=== PATIENT | male | born 1965 | race Caucasian/White ===

== ENCOUNTER 2020-07-06 14:44 | Emergency (ER) | payer OTHER ==
[2020-07-06] MEDS ORDERED: HYDROCODONE/APAP 10/325 TAB ONE (15:20)
--- NOTE | 2020-07-06 15:27 | RAD REPORT ---
EXAM DESCRIPTION: RAD - Ankle Right 3 View - 07/06/2020 3:16 pm CLINICAL HISTORY: Pain;Swelling COMPARISON: No comparisons FINDINGS: Minimal avulsion fracture from the distal tip of the fibula suspected. Moderate surroundin g soft tissue swelling. Small calcaneal spurs.
--- NOTE | 2020-07-06 16:17 | EDPHYS ---
Physician Documentation [facility] Name: Ignacio Haddad Age: 55 yrs Sex: Male : 1965 Arrival Date: 07/06/2020 Time: 14:48 Bed 17 Private MD: ED Physician Vladislav De Los Santos HPI: 07/06 15:10 This 55 yrs old Male presents to ER via Ambulatory with complaints of Fall pm1 Injury, Ankle Injury. 15:10 Details of fall: The patient fell and struck dirt. Onset: The symptoms/episode pm1 began/occurred yesterday. Associated injuries: The patient sustained right ankle. Severity of symptoms: in the emergency department the symptoms are actually worse. The patient has not experienced similar symptoms in the past. Patient was climbing out of a 5 foot deep trench with a ladder and he slipped on the last rung. landed on the bottom of the trench standing but inverted his right foot. Patient was able to walk after the injury and continue working but this AM when he woke up his ankle was more swollen and painful. Historical: - Allergies: 15:00 No Known Allergies; sv - Immunization history:: Adult Immunizations up to date. - Social history:: Smoking status: . - Immunization history: Last tetanus immunization: - up to date. ROS: 15:10 Constitutional: Negative for fever, chills, and weight loss, Neck: Negative for injury, pm1 pain, and swelling, Cardiovascular: Negative for chest pain, palpitations, and edema, Respiratory: Negative for shortness of breath, cough, wheezing, and pleuritic chest pain, Back: Negative for injury and pain. 15:10 Skin: Negative for injury, rash, and discoloration. 15:10 Neuro: Negative for headache, weakness, numbness, tingling, and seizure. 15:10 MS/extremity: Positive for pain, swelling, tenderness, of the right ankle, Negative for decreased range of motion, deformity. Exam: 15:10 Constitutional: This is a well developed, well nourished patient who is awake, alert, pm1 and in no acute distress. Head/Face: Normocephalic, atraumatic. Neck: Trachea midline, no thyromegaly or masses palpated, and no cervical lymphadenopathy. Supple, full range of motion without nuchal rigidity, or vertebral point tenderness. No Meningismus. 15:10 Cardiovascular: Exam negative for acute changes, Rate: normal, Rhythm: regular, Pulses: no pulse deficits are appreciated. 15:10 Respiratory: Exam negative for acute changes, respiratory distress, shortness of breath. 15:10 Musculoskeletal/extremity: Extremities: grossly normal except: noted in the right ankle: swelling, tenderness, There is no evidence of decreased ROM, deformity, Circulation is intact in all extremities. Sensation intact. 15:10 Neuro: Exam negative for acute changes, Orientation: is normal, Mentation: is normal, Motor: is normal, moves all fours. Vital Signs: 14:59 BP 205 / 101; Pulse 83; Resp 16; Temp 97.7; Pulse Ox 99% ; Weight 136.98 kg; Height 5 sv ft. 9 in. (175.26 cm); 15:00 BP 205 / 101; Pulse 79; Resp 18; Temp 98.0; Pulse Ox 98% ; Pain 7/10; ll1 15:11 BP 166 / 96; ll1 17:10 BP 167 / 88; Pulse 71; Resp 18; Pulse Ox 98% ; Pain 0/10; sv 14:59 Body Mass Index 44.60 (136.98 kg, 175.26 cm) sv [place] Coma Score: 15:02 Eye Response: spontaneous(4). Verbal Response: oriented(5). Motor Response: obeys ll1 commands(6). Total: 15. Trauma Score (Adult): 15:02 Eye Response: spontaneous(1); Verbal Response: oriented(1); Motor Response: obeys ll1 commands(2); Systolic BP: > 89 mm Hg(4); Respiratory Rate: 10 to 29 per min(4); [place] Score: 15; Trauma Score: 12 Procedures: 16:43 Splinting: Splint applied to right ankle using Orthoglass splint, applied by tech. pm1 Examined by me, post splint application: neurovascular intact, 2+ distal pulses palpable, brisk capillary refill noted, Patient tolerated well, Patient is happy with the support that it is providing. MDM: 14:57 Patient medically screened. pm1 16:13 Data reviewed: vital signs. Data interpreted: Pulse oximetry: on room air is 98 %. pm1 Interpretation: normal. Counseling: I had a detailed discussion with the patient and/or guardian regarding: the historical points, exam findings, and any diagnostic results supporting the discharge/admit diagnosis, radiology results, the need for outpatient follow up, for definitive care, a orthopedic surgeon, to return to the emergency department if symptoms worsen or persist or if there are any questions or concerns that arise at home. 07/06 14:57 Order name: Ankle Right 3 View XRAY; Complete Time: 15:32 pm1 07/06 14:57 Order name: Ice pack; Complete Time: 14:59 pm1 07/06 15:58 Order name: Crutches; Complete Time: 16:32 pm1 07/06 15:58 Order name: Splint - Ankle: Orthoglass: Stirrup; Complete Time: 16:32 pm1 Administered Medications: 15:10 Drug: [place] 10 mg-325 mg 1 tabs {Note: rass 0.} Route: PO; ll1 17:21 Follow up: Response: No adverse reaction; Pain is decreased; RASS: Alert and Calm (0) sv Disposition: 17:26 Co-signature as Attending Physician, Vladislav De Los Santos MD. rn Disposition: 07/06/20 16:16 Discharged to Home. Impression: Closed right minimal distal fibula avulsion fracture. - Condition is Stable. - Discharge Instructions: Ankle Fracture, Cast or Splint Care, Adult, Crutch Use. - Prescriptions for Tylenol- Codeine #3 300-30 mg Oral Tablet - take 2 tablets by ORAL route every 6 hours As needed; 20 tablet. - Medication Reconciliation Form, Thank You Letter, Antibiotic Education, Prescription Opioid Use form. - Follow up: Emergency Department; When: As needed; Reason: Worsening of condition. Follow up: Private Physician; When: 2 - 3 days; Reason: Recheck today's complaints, Continuance of care, Re-evaluation by your physician. - Problem is new. - Symptoms have improved. Signatures: Dispatcher [employer] Briana Gordon RN Vladislav Seals MD MD rn Marinas, Patrick, NP ART CRITIC pm1 Radha Stevens RN RN ll1 Corrections: (The following items were deleted from the chart) 17:13 16:16 07/06/2020 16:16 Discharged to Home. Impression: Closed right minimal distal sv fibula avulsion fracture. Condition is Stable. Forms are Medication Reconciliation Form, Thank You Letter, Antibiotic Education, Prescription Opioid Use. Follow up: Emergency Department; When: As needed; Reason: Worsening of condition. Follow up: Private Physician; When: 2 - 3 days; Reason: Recheck today's complaints, Continuance of care, Re-evaluation by your physician. Problem is new. Symptoms have improved. pm1
--- NOTE | 2020-07-06 16:17 | ER ---
Nurse's Notes [facility] Name: Ignacio Haddad Age: 55 yrs Sex: Male : 1965 Arrival Date: 07/06/2020 Time: 14:48 Bed 17 Private MD: Diagnosis: Closed right minimal distal fibula avulsion fracture Presentation: 07/06 14:58 Chief complaint: Patient states: was digging a trench outside, was coming out of the sv ditch and slipped. Landed on a dirt chunk and rolled his right ankle inward. c/o pain and swelling. Care prior to arrival: None. Mechanism of Injury: Fall. Trauma event details: Injury occurred: at home. Injury occurred: July 05, 2000. 14:58 Method Of Arrival: Ambulatory sv 14:58 Acuity: DEWEY 3 sv 14:58 Onset of symptoms was July 05, 2020. sv 14:59 Coronavirus screen: Client denies travel out of the [place] in the last 14 days. At this sv time, the client does not indicate any symptoms associated with coronavirus-19. Ebola Screen: No symptoms or risks identified at this time. 15:00 Ebola Screen: Patient denies travel to an Ebola-affected area in the 21 days before ll1 illness onset. Initial Sepsis Screen: Does the patient meet any 2 criteria? No. Patient's initial sepsis screen is negative. Does the patient have a suspected source of infection? Yes: Bone or joint infection. Risk Assessment: Do you want to hurt yourself or someone else? Patient reports no desire to harm self or others. Onset of symptoms was July 06, 2020. Triage Assessment: 15:02 General: Appears uncomfortable, Behavior is calm, cooperative, appropriate for age. ll1 Pain:. Neuro: No deficits noted. Cardiovascular: No deficits noted. Respiratory: No deficits noted. Musculoskeletal: Circulation, motion, and sensation intact. Capillary refill < 3 seconds, Swelling present in R ankle. Injury Description: Bruise tripped waking up ditch. Trauma Activation: Not Applicable Physician: ED Physician; Name: ; Notified At: ; Arrived At: Physician: General Surgeon; Name: ; Notified At: ; Arrived At: Physician: Radiology; Name: ; Notified At: ; Arrived At: Physician: Respiratory; Name: ; Notified At: ; Arrived At: Physician: Lab; Name: ; Notified At: ; Arrived At: Historical: - Allergies: 15:00 No Known Allergies; sv - Immunization history:: Adult Immunizations up to date. - Social history:: Smoking status: . - Immunization history: Last tetanus immunization: - up to date. Screenin:01 Abuse screen: Denies threats or abuse. Nutritional screening: No deficits noted. ll1 Tuberculosis screening: No symptoms or risk factors identified. Fall Risk Ambulatory Aid- Crutches/Cane/Walker (15 pts). Gait- Impaired (20 pts.). Total Katz Fall Scale indicates Low Risk Score (25-44 pts). Fall prevention measures have been instituted. Side Rails Up X 2 Frequent Obs/Assesments occuring As available Patient and Family Educated on Fall Prevention Program and strategies. Primary Survey: 15:01 NO uncontrolled hemorrhage observed. A: The patient is alert. Airway: patent. ll1 Breathing/Chest: Respiratory pattern: regular, Respiratory effort: spontaneous, unlabored, Breath sounds: clear, Chest inspection: symmetrical rise and fall of the chest. Circulation: Heart tones present. Pulses: palpable right radial artery, right dorsalis pedis artery, left radial artery and left dorsalis pedis artery. Skin color: pink. Disability Alert. Exposure/Environment: A warming method has been applied: A warm blanket has been provided to the patient. 15:13 Reassessment Breathing/Chest Respiratory pattern Regular Respiratory effort Spontaneous ll1 Unlabored Breath sounds Clear Chest inspection Symmetrical. Assessment: 15:11 General: Appears uncomfortable, Behavior is calm, cooperative, appropriate for age. ll1 Pain: Complains of pain in R ankle Quality of pain is described as aching, Pain began 1 day ago. Aggravated by increased activity. Neuro: No deficits noted. Cardiovascular: No deficits noted. Respiratory: No deficits noted. Derm: 3 small abrasion down right bates, no active bleeding. Musculoskeletal: Circulation, motion, and sensation intact. Capillary refill < 3 seconds, Swelling present in R lateral ankle Tenderness present in R ankle Reports pain in R ankle. Injury Description: Bruise slip and fall. 16:10 Reassessment: Patient and/or family updated on plan of care and expected duration. Pain sv level reassessed. Patient is alert, oriented x 3, equal unlabored respirations, skin warm/dry/pink. Patient states feeling better. 17:10 Reassessment: Patient and/or family updated on plan of care and expected duration. Pain sv level reassessed. Patient is alert, oriented x 3, equal unlabored respirations, skin warm/dry/pink. Vital Signs: 14:59 BP 205 / 101; Pulse 83; Resp 16; Temp 97.7; Pulse Ox 99% ; Weight 136.98 kg; Height 5 sv ft. 9 in. (175.26 cm); 15:00 BP 205 / 101; Pulse 79; Resp 18; Temp 98.0; Pulse Ox 98% ; Pain 7/10; ll1 15:11 BP 166 / 96; ll1 17:10 BP 167 / 88; Pulse 71; Resp 18; Pulse Ox 98% ; Pain 0/10; sv 14:59 Body Mass Index 44.60 (136.98 kg, 175.26 cm) sv [place] Coma Score: 15:02 Eye Response: spontaneous(4). Verbal Response: oriented(5). Motor Response: obeys ll1 commands(6). Total: 15. Trauma Score (Adult): 15:02 Eye Response: spontaneous(1); Verbal Response: oriented(1); Motor Response: obeys ll1 commands(2); Systolic BP: > 89 mm Hg(4); Respiratory Rate: 10 to 29 per min(4); [place] Score: 15; Trauma Score: 12 ED Course: 14:48 Patient arrived in ED. mr 14:49 Saran Lowe, FERMIN is PHCP. pm1 14:49 Vladislav De Los Santos MD is Attending Physician. pm1 14:54 Radha Stevens RN is Primary Nurse. ll1 14:59 Triage completed. sv 15:00 Nurse Practitioner and/or Physician Pig Farm Manager to see patient. sv 15:00 Arm band placed on. sv 15:00 X-ray(s) taken. jp3 15:02 Patient maintains SpO2 saturation greater than 95% on room air. ll1 15:03 Patient has correct armband on for positive identification. Bed in low position. Call ll1 light in reach. Side rails up X 1. Pulse ox on. NIBP on. 15:03 Ice pack to injury. jp3 15:04 Thermoregulation: warm blanket given to patient. ll1 15:17 Ankle Right 3 View XRAY In Process Unspecified. EDMS 16:31 Crutch training done. Donnie wrap to right ankle Orthoglass splint: stirrup splint applied jp3 on right leg. 17:13 No provider procedures requiring assistance completed. Patient did not have IV access sv during this emergency room visit. Administered Medications: 15:10 Drug: [place] 10 mg-325 mg 1 tabs {Note: rass 0.} Route: PO; ll1 17:21 Follow up: Response: No adverse reaction; Pain is decreased; RASS: Alert and Calm (0) sv Intake: 17:23 PO: 50ml; Total: 50ml. sv Outcome: 16:16 Discharge ordered by MD. pm1 17:13 Patient left the ED. sv 17:13 Discharged to home via wheelchair. sv 17:13 Condition: stable 17:22 Discharge instructions given to patient, Instructed on discharge instructions, follow sv up and referral plans. medication usage, crutch walking, Demonstrated understanding of instructions, follow-up care, medications, crutch walking, splint care, Prescriptions given X 1. 17:22 Patient's length of stay in the Emergency Department was greater than 2 hours. Signatures: Dispatcher [employer] EDMS Briana Valverde RN RN sv Indy VeeSaran, BUILD TECHNICIAN BUILD TECHNICIAN pm1 Eb Nguyen jp3 Radha Stevens RN RN ll1 Corrections: (The following items were deleted from the chart) 15:00 14:58 Acuity: DEWEY 4 sv sv 17:24 17:22 Discharged to home via wheelchair, sv sv 17:24 17:22 Condition: stable sv sv
[2020-07-06 21:29] VITALS: TEMP 98; O2SAT 98
[2020-07-06 21:36] VITALS: BP 166/96
== END 2020-07-06 17:13 | disposition home or self-care (01) ==
LOC: ER 14:44
PROC: 2W3QX1Z Immobilization of Right Lower Leg using Splint (ICD-10-PCS; principal; 2020-07-06)
DX: S82.831A Other fracture of upper and lower end of right fibula, initial encounter for closed fracture (principal); W11.XXXA Fall on and from ladder, initial encounter; Y93.89 Activity, other specified; Y92.89 Other specified places as the place of occurrence of the external cause
CPT/HCPCS: 99284

== ENCOUNTER 2021-02-16 11:10 | Emergency (ER) | payer BC, OTHER ==
--- OUTSIDE RECORDS SUMMARY | 2021-02-16 12:15 | XMS REPORT | Continuity of Care Document ---
:1965 Author Organization [facility] t Address [address] [place] [address] [address] [place] [address] Care Team Providers Name Role Phone Halina Hutson DO Primary Care Physician Lamin SANCHEZ S. Attending Clinician Payers Payer Name Policy Type Policy Effective Date Expiration Date [facility] ce Number AETNAAETNA PPO [id number] [place] OPEN 00:00:00 [place] [id number] PPO Problems This patient has no known problems. Allergies, Adverse Reactions, Alerts Allergy Allergy Status Severity Reaction(s) Onset Inactive Treating Comm ents Source Name Type Date Date Clinician Statins- Propensi Active Anaphylaxis 2019- [place] [facility] to 2-10 [facility] Reductas adverse 00:00: st e reaction 00 Inhibito s to rs drug Family History Family Member Diagnosis Comments Start Date Stop Date Source Paternal grandfather Heart attack [place] [facility] Natural father Diabetes [place] [facility] Maternal grandfather Blood Clots [place] [facility] Natural mother Cancer [place] [facility] Natural mother Diabetes [place] [facility] Social History Social Habit Start Date Stop Date Quantity Comments Source Tobacco use and 2020-07-24 2020-07-24 Never used [facility] ethodist exposure 00:00:00 00:00:00 Alcohol intake 2020-07-24 2020-07-24 Current drinker [place] [facility] 00:00:00 00:00:00 of alcohol (finding) Tobacco Comment 2020-07-24 2020-07-24 allergic to [place] [facility] 00:00:00 00:00:00 nicotine Sex Ass[birth year] At [birth year] M [place] Cj ethodist 00:00:00 00:00:00 Smoking Status Start Date Stop Date Source Never smoker [place] t Medications This patient has no known medications. Vital Signs Vital Name Observation Time Observation Value Comments Source Body height 2020-07-24 13:26:00 176.5 cm René Hansen Body weight 2020-07-24 13:26:00 144.244 kg René Hansen BMI 2020-07-24 13:26:00 46.29 kg/m2 René Hansen Procedures Procedure Date / Time Performed Performing Clinician Sourc e XR ANKLE 3+ VW RIGHT 2020-07-24 13:26:35 Dewey Kimble [facility] XR TIBIA FIBULA 2 VW 2020-07-24 13:26:35 Dewey Kimble [facility] RIGHT Plan of Care Planned Activity Planned Date Details Comments Source Future Scheduled 2021-03-15 INFLUENZA VACCINE [place] [facility] 00:00:00 [code = INFLUENZA VACCINE] Future Scheduled 2017 COLONOSCOPY SCREENING [place] [facility] 00:00:00 [code = COLONOSCOPY SCREENING] Future Scheduled 2017 SHINGLES VACCINES (#1) [place] [facility] 00:00:00 [code = SHINGLES VACCINES (#1)] Future Scheduled 1985 Hepatitis C screening [place] [facility] 00:00:00 (procedure) [code = 719499020] Future Scheduled 1979 COVID-19 VACCINE (1) [place] [facility] Test 00:00:00 [code = COVID-19 VACCINE (1)] Future Scheduled 1977 DIABETES: RETINAL EYE [place] [facility] 00:00:00 EXAM [code = DIABETES: RETINAL EYE EXAM] Future Scheduled 1977 DIABETIC FOOT EXAM [place] [facility] 00:00:00 [code = DIABETIC FOOT EXAM] Future Scheduled 1977 URINE MICROALBUMIN [place] [facility] Test 00:00:00 [code = URINE MICROALBUMIN] Encounters Start End Encounter Admission Attending Care Care Encounter Source Date/Time Date/Time Type Type Clinicians Facility Department ID 2020-07-24 2020-07-24 Outpatient [facility] [id number] [place] 00:00:00 00:00:00 [place] [address] 2020-07-24 2020-07-24 Outpatient [facility]ITO [facility] [id number] [place] 00:00:00 00:00:00 [place] [address] Results This patient has no known results.
--- NOTE | 2021-02-16 15:01 | RAD REPORT ---
EXAM DESCRIPTION: CT - Spine Lumbar Wo Con - 02/16/2021 2:47 pm CLINICAL HISTORY: Radiculopathy. LOWER BACK PAIN COMPARISON: No comparisons TECHNIQUE: Axial noncontrast CT imaging of the lumbar spine was performed with coronal and sagittal re-formatted images. All CT scans are performed using dose optimization technique as appropriate and may include automated exposure control or mA/KV adjustment according to patient size. FINDINGS: No acute lumbar spine fracture seen. No aggressive marrow pattern or malalignment. Paraspinal tissues are normal in thickness. No paraspinal abscess or hematoma seen. Bilateral spondylolysis is present at L5-S1 with 5 mm anterolisthesis a moderate posterior disc bulge . Vnko-ih-amuluvay central canal narrowing is likely present. IMPRESSION: No acute lumbar spine abnormality. Bilateral chronic spondylolysis with mild anterolisthesis moderate posterior disc bulge at L5-S1.
[2021-02-16 15:29] LABS: Urine Blood Trace-intact (Negative); Urine Glucose 3+ (Negative); Urine Protein 3+ (Negative); Urine Specific Gravity 1.025 (1.005-1.030); Urine pH 6.5 (5.0-7.0)
[2021-02-16 15:34] LABS: Absolute Lymphocytes (CBC) 2.1 K/uL (0.7-4.9); Basophils % 1.1 % (0-1.3); Hematocrit 44.2 % (39.6-49.0); Lymphocytes % 24.9 % (15.3-44.8); MPV 7.2 fL (7.6-11.3); RBC Red Blood Cell Count 5.21 M/uL (4.33-5.43)
[2021-02-16 15:41] LABS: Protime INR 1.01
[2021-02-16 15:55] LABS: ALT/SGPT 20 U/L (12-78); AST/SGOT 13 U/L (15-37); Albumin 3.5 g/dL (3.4-5.0); Alkaline Phosphatase 52 U/L (45-117); BUN Blood Urea Nitrogen 12 mg/dL (7-18); Bicarbonate 30 mmol/L (21-32); Bilirubin Direct 0.1 mg/dL (0-0.2); Bilirubin Total 0.5 mg/dL (0.2-1.0); Glucose Level 115 mg/dL (74-106); Lipase 81 U/L (73-393); Magnesium 2.3 mg/dL (1.8-2.4); NT PRO-BNP 94 pg/mL (<125); Potassium 3.7 mmol/L (3.5-5.1); Protein, Total 7.5 g/dL (6.4-8.2); Sodium Level 141 mmol/L (136-145); Troponin (Emerg Dept Use Only) < 0.02 ng/mL (0.0-0.045)
--- NOTE | 2021-02-16 15:58 | RAD REPORT ---
EXAM DESCRIPTION: RAD - Chest Single View - 02/16/2021 3:23 pm CLINICAL HISTORY: COUGH Chest pain. COMPARISON: <Comparisons> FINDINGS: Portable technique limits examination quality. The lungs are mildly emphysematous but grossly clear. The heart is normal in size. No displaced fract ures. IMPRESSION: No acute intrathoracic process suspected.
[2021-02-16] MEDS ORDERED: NA CHLORIDE 0.9% 1,000 ML ONE (16:03)
--- NOTE | 2021-02-16 16:25 | EDPHYS ---
Physician Documentation [facility] Name: Ignacio Haddad Age: 55 yrs Sex: Male : 1965 Arrival Date: 02/16/2021 Time: 11:12 Bed 24 Private MD: ED Physician Arron Rich HPI: 02/16 16:19 This 55 yrs old Male presents to ER via Ambulatory with complaints of Back jarvis Pain. 16:19 The patient presents with pain that is acute, and decreased range of motion. The jarvis symptoms are located in the low back, lumbar area and right low back. Onset: The symptoms/episode began/occurred 2 week(s) ago. The pain radiates to the lumbar area and right low back. Associated signs and symptoms: Pertinent positives: none. The problem was sustained when lifting boxes, heavy object. Modifying factors: The patient symptoms are alleviated by remaining still, rest, the patient symptoms are aggravated by lifting, movement, standing, walking. Severity of symptoms: At their worst the symptoms were mild, moderate, in the emergency department the symptoms are actually worse, mildly. The patient has experienced similar episodes in the past, multiple times. Historical: - Allergies: 11:54 Nvixmca-Umr-Qwq Reductase Inhibitors; jl7 - PMHx: 11:54 Diabetes mellitus; jl7 - Immunization history:: Client reports having NOT received the Covid vaccine. - Social history:: Smoking status: Patient denies any tobacco usage or history of. - Family history:: not pertinent. ROS: 16:19 Constitutional: Negative for fever, chills, and weight loss, Eyes: Negative for injury, jarvis pain, redness, and discharge, ENT: Negative for injury, pain, and discharge, Neck: Negative for injury, pain, and swelling, Cardiovascular: Negative for chest pain, palpitations, and edema, Respiratory: Negative for shortness of breath, cough, wheezing, and pleuritic chest pain, Abdomen/GI: Negative for abdominal pain, nausea, vomiting, diarrhea, and constipation, : Negative for injury, bleeding, discharge, and swelling, MS/Extremity: Negative for injury and deformity, Skin: Negative for injury, rash, and discoloration, Neuro: Negative for headache, weakness, numbness, tingling, and seizure, Psych: Negative for depression, anxiety, suicide ideation, homicidal ideation, and hallucinations, Allergy/Immunology: Negative for hives, rash, and allergies, Endocrine: Negative for neck swelling, polydipsia, polyuria, polyphagia, and marked weight changes, Hematologic/Lymphatic: Negative for swollen nodes, abnormal bleeding, and unusual bruising. 16:19 Back: Positive for decreased range of motion, pain at rest, pain with movement, radiated pain, of the lumbar area and right low back. Exam: 16:19 Constitutional: This is a well developed, well nourished patient who is awake, alert, jarvis and in no acute distress. Head/Face: Normocephalic, atraumatic. Eyes: Pupils equal round and reactive to light, extra-ocular motions intact. Lids and lashes normal. Conjunctiva and sclera are non-icteric and not injected. Cornea within normal limits. Periorbital areas with no swelling, redness, or edema. ENT: Nares patent. No nasal discharge, no septal abnormalities noted. Tympanic membranes are normal and external auditory canals are clear. Oropharynx with no redness, swelling, or masses, exudates, or evidence of obstruction, uvula midline. Mucous membranes moist. Neck: Trachea midline, no thyromegaly or masses palpated, and no cervical lymphadenopathy. Supple, full range of motion without nuchal rigidity, or vertebral point tenderness. No Meningismus. Chest/axilla: Normal chest wall appearance and motion. Nontender with no deformity. No lesions are appreciated. Cardiovascular: Regular rate and rhythm with a normal S1 and S2. No gallops, murmurs, or rubs. Normal PMI, no JVD. No pulse deficits. Respiratory: Lungs have equal breath sounds bilaterally, clear to auscultation and percussion. No rales, rhonchi or wheezes noted. No increased work of breathing, no retractions or nasal flaring. Abdomen/GI: Soft, non-tender, with normal bowel sounds. No distension or tympany. No guarding or rebound. No evidence of tenderness throughout. Male : Normal genitalia with no discharge or lesions. Skin: Warm, dry with normal turgor. Normal color with no rashes, no lesions, and no evidence of cellulitis. MS/ Extremity: Pulses equal, no cyanosis. Neurovascular intact. Full, normal range of motion. Neuro: Awake and alert, GCS 15, oriented to person, place, time, and situation. Cranial nerves II-XII grossly intact. Motor strength 5/5 in all extremities. Sensory grossly intact. Cerebellar exam normal. Normal gait. Psych: Awake, alert, with orientation to person, place and time. Behavior, mood, and affect are within normal limits. 16:19 ECG was reviewed by the Attending Physician. 16:19 Back: pain, that is moderate, ROM is painful, with flexion, with extension, normal spinal alignment noted, CVA tenderness, is absent, vertebral tenderness, is not appreciated, muscle spasm, is not present. Vital Signs: 11:52 BP 174 / 94; Pulse 80; Resp 17; Temp 97.6; Pulse Ox 98% ; Weight 136.98 kg; Height 5 jl7 ft. 10 in. (177.80 cm); Pain 7/10; 14:58 BP 162 / 86; Pulse 84; Resp 18; Pulse Ox 99% on R/A; Pain 8/10; ld1 15:52 BP 156 / 82; Pulse 79; Resp 18; Pulse Ox 99% on R/A; ld1 16:50 BP 148 / 80; Pulse 79; Resp 18; Pulse Ox 100% ; ld1 11:52 Body Mass Index 43.33 (136.98 kg, 177.80 cm) jl7 MDM: 14:32 Patient medically screened. jarvis 16:30 Differential diagnosis: Abdominal Aortic Aneurysm chronic back pain, Epidural or jarvis Perispinal Abcess Fatigue Fracture Obesity Peptic Ulcer Pyelonephritis Scoliosis spinal injury, Ureterolithiasis vertebral fracture. Data reviewed: vital signs, nurses notes, lab test result(s), EKG, radiologic studies, CT scan, plain films. Data interpreted: court monitor: rate is 79 beats/min, rhythm is regular, Pulse oximetry: on room air is 99 %. Test interpretation: by ED physician or midlevel provider: ECG, plain radiologic studies. Counseling: I had a detailed discussion with the patient and/or guardian regarding: the historical points, exam findings, and any diagnostic results supporting the discharge/admit diagnosis, lab results, radiology results, the need for outpatient follow up, for definitive care, a family practitioner, a neurologist. 02/16 14:33 Order name: Basic Metabolic Panel; Complete Time: 16:18 jarvis 02/16 14:33 Order name: CBC with Diff; Complete Time: 15:43 [facility] 02/16 14:33 Order name: LFT's; Complete Time: 16:18 [facility] 02/16 14:33 Order name: Magnesium; Complete Time: 16:18 [facility] 02/16 14:33 Order name: NT PRO-BNP; Complete Time: 16:18 [facility] 02/16 14:33 Order name: PT-INR; Complete Time: 16:18 [facility] 02/16 14:33 Order name: Troponin (emerg Dept Use Only); Complete Time: 16:18 [facility] 02/16 14:33 Order name: XRAY Chest (1 view); Complete Time: 16:18 [facility] 02/16 14:33 Order name: Urine Culture [facility] 02/16 14:33 Order name: Lipase; Complete Time: 16:18 [facility] 02/16 14:33 Order name: CT Lumbar Spine Wo Con; Complete Time: 15:43 [facility] 02/16 15:28 Order name: Urine Dipstick-Ancillary; Complete Time: 15:43 EDMS 02/16 14:33 Order name: EKG; Complete Time: 14:33 [facility] 02/16 14:33 Order name: Cardiac monitoring; Complete Time: 15:28 [facility] 02/16 14:33 Order name: EKG - Nurse/Tech; Complete Time: 15:28 [facility] 02/16 14:33 Order name: IV Saline Lock; Complete Time: 15:28 [facility] 02/16 14:33 Order name: Labs collected and sent; Complete Time: 15:28 [facility] 02/16 14:33 Order name: O2 Per Protocol; Complete Time: 14:36 [facility] 02/16 14:33 Order name: O2 Sat Monitoring; Complete Time: 14:36 [facility] 02/16 14:33 Order name: Urine Dipstick-Ancillary (obtain specimen); Complete Time: 15:28 [facility] EC:19 Rate is 66 beats/min. Rhythm is regular. QRS Barry is Normal. ID interval is normal. QRS jarvis interval is normal. QT interval is normal. No Q waves. T waves are Normal. No ST changes noted. Clinical impression: NSR w/ Non-specific ST/T Changes and No evidence of ischemia. Interpreted by me. Reviewed by me. Administered Medications: 15:50 Drug: NS 0.9% 1000 ml Route: IV; Rate: 1 bolus; Site: right antecubital; ld1 16:33 Drug: Decadron - Dexamethasone 10 mg Route: IVP; Site: right antecubital; ld1 16:33 Drug: Ketorolac 30 mg Route: IVP; Site: right antecubital; ld1 16:33 Drug: Valium (diazepam) 5 mg Route: PO; ld1 Disposition Summary: 02/16/21 16:24 Discharge Ordered Location: Home jarvis Problem: new jarvis Symptoms: have improved jarvis Condition: Stable jarvis Diagnosis - Low back pain jarvis - Other injury of muscle, fascia and tendon of lower back jarvis - Sciatica, right side jarvis - Type 2 diabetes mellitus with hyperglycemia jarvis - Obesity, unspecified jarvis Followup: jarvis - With: Private Physician - When: 2 - 3 days - Reason: Recheck today's complaints, Continuance of care, Re-evaluation by your physician Followup: jarvis - With: Vince Feliciano MD - When: 2 - 3 days - Reason: Recheck today's complaints, Re-evaluation by your physician Discharge Instructions: - Discharge Summary Sheet jarvis - Acute Back Pain, Adult jarvis - Chronic Back Pain jarvis - Type 2 Diabetes Mellitus, Diagnosis, Adult jarvis - Hyperglycemia jarvis - Musculoskeletal Pain jarvis - Obesity, Adult jarvis - Sciatica jarvis - Chronic Back Pain, Groy-zq-Clqc jarvis - Type 2 Diabetes Mellitus, Diagnosis, Adult, Wwmp-[id number] jarvis Forms: - Medication Reconciliation Form [facility] - Thank You Letter [facility] - Antibiotic Education [facility] - Prescription Opioid Use [facility] Prescriptions: - dexamethasone 2 mg Oral tablet - take 1 tablet by ORAL route 2 times per day; 10 tablet; Refills: 0, Product jarvis Selection Permitted - Ibuprofen 600 mg Oral Tablet - take 1 tablet by ORAL route every 6 hours As needed take with food; 20 tablet; [facility] Refills: 0, Product Selection Permitted - Tramadol 50 mg Oral Tablet - take 1 tablet by ORAL route every 8 hours as needed; 30 tablet; Refills: 0, [facility] Product Selection Permitted - Cyclobenzaprine 5 mg Oral Tablet - take 1 tablet by ORAL route 3 times per day As needed; 15 tablet; Refills: 0, [facility] Product Selection Permitted Signatures: Dispatcher [employer] Arron Nagel MD MD cha Leal, Jahala RN RN jl7 Georgette Lewis RN RN ld1 Corrections: (The following items were deleted from the chart) 11:55 11:54 PMHx: None; michelle jlKimi
--- NOTE | 2021-02-16 16:25 | ER ---
Nurse's Notes [facility] Name: Ignacio Haddad Age: 55 yrs Sex: Male : 1965 Arrival Date: 02/16/2021 Time: 11:12 Bed 24 Private MD: Diagnosis: Low back pain;Other injury of muscle, fascia and tendon of lower back;Sciatica, right side;Type 2 diabetes mellitus with hyperglycemia;Obesity, unspecified Presentation: 02/16 11:52 Chief complaint: Patient states: Low back pain radiates to bilateral legs since jl7 Tuesday. Coronavirus screen: Client denies travel out of the [place] in the last 14 days. At this time, the client does not indicate any symptoms associated with coronavirus-19. Ebola Screen: No symptoms or risks identified at this time. Initial Sepsis Screen: Does the patient meet any 2 criteria? No. Patient's initial sepsis screen is negative. Does the patient have a suspected source of infection? No. Patient's initial sepsis screen is negative. Risk Assessment: Do you want to hurt yourself or someone else? Patient reports no desire to harm self or others. Onset of symptoms was February 14, 2021. 11:52 Method Of Arrival: Ambulatory jl7 11:52 Acuity: DEWEY 4 jl7 14:35 Acuity: DEWEY 3 iw Historical: - Allergies: 11:54 Anqkylp-Svx-Cqm Reductase Inhibitors; jl7 - PMHx: 11:54 Diabetes mellitus; jl7 - Immunization history:: Client reports having NOT received the Covid vaccine. - Social history:: Smoking status: Patient denies any tobacco usage or history of. - Family history:: not pertinent. Screenin:58 Abuse screen: Denies threats or abuse. Denies injuries from another. Nutritional ld1 screening: No deficits noted. Tuberculosis screening: No symptoms or risk factors identified. Fall Risk None identified. Assessment: 14:58 General: Appears in no apparent distress. uncomfortable, Behavior is calm, cooperative, ld1 appropriate for age. Pain: Complains of pain in left low back and right low back Pain does not radiate. Pain currently is 8 out of 10 on a pain scale. Quality of pain is described as throbbing, Pain began gradually, Is continuous. Neuro: Level of Consciousness is awake, alert, obeys commands, Oriented to person, place, time, situation, Appropriate for age. Cardiovascular: Capillary refill < 3 seconds Patient's skin is warm and dry. Respiratory: Airway is patent Respiratory effort is even, unlabored, Respiratory pattern is regular, symmetrical. GI: Abdomen is round non-distended. : No signs and/or symptoms were reported regarding the genitourinary system. EENT: No signs and/or symptoms were reported regarding the EENT system. Derm: No signs and/or symptoms reported regarding the dermatologic system. Musculoskeletal: No signs and/or symptoms reported regarding the musculoskeletal system. 15:52 Reassessment: Patient appears in no apparent distress at this time. Patient is alert, ld1 oriented x 3, equal unlabored respirations, skin warm/dry/pink. 16:50 Reassessment: Patient appears in no apparent distress at this time. Patient is alert, ld1 oriented x 3, equal unlabored respirations, skin warm/dry/pink. Patient denies pain at this time. Vital Signs: 11:52 BP 174 / 94; Pulse 80; Resp 17; Temp 97.6; Pulse Ox 98% ; Weight 136.98 kg; Height 5 jl7 ft. 10 in. (177.80 cm); Pain 7/10; 14:58 BP 162 / 86; Pulse 84; Resp 18; Pulse Ox 99% on R/A; Pain 8/10; ld1 15:52 BP 156 / 82; Pulse 79; Resp 18; Pulse Ox 99% on R/A; ld1 16:50 BP 148 / 80; Pulse 79; Resp 18; Pulse Ox 100% ; ld1 11:52 Body Mass Index 43.33 (136.98 kg, 177.80 cm) jl7 ED Course: 11:12 Patient arrived in ED. as 11:54 Triage completed. jl7 11:54 Arm band placed on right wrist. jl7 14:32 Arron Rich MD is Attending Physician. [facility] 14:35 Georgette Lewis, BONIFACIO is Primary Nurse. ld1 14:47 CT Lumbar Spine Wo Con In Process Unspecified. EDMS 14:58 Patient has correct armband on for positive identification. Bed in low position. Call ld1 light in reach. Side rails up X2. traffic monitor specialist on. Pulse ox on. NIBP on. 15:23 XRAY Chest (1 view) In Process Unspecified. EDMS 15:28 Inserted saline lock: 20 gauge in right antecubital area, using aseptic technique. ld1 Blood collected. 16:24 Vince Feliciano MD is Referral Physician. [facility] 16:50 No provider procedures requiring assistance completed. IV discontinued, intact, ld1 bleeding controlled, No redness/swelling at site. Administered Medications: 15:50 Drug: NS 0.9% 1000 ml Route: IV; Rate: 1 bolus; Site: right antecubital; ld1 16:33 Drug: Decadron - Dexamethasone 10 mg Route: IVP; Site: right antecubital; ld1 16:33 Drug: Ketorolac 30 mg Route: IVP; Site: right antecubital; ld1 16:33 Drug: Valium (diazepam) 5 mg Route: PO; ld1 Outcome: 16:24 Discharge ordered by . [facility] 16:50 Discharged to home ambulatory. ld1 16:50 Condition: stable 16:50 Discharge instructions given to patient, Instructed on discharge instructions, follow up and referral plans. medication usage, Demonstrated understanding of instructions, follow-up care, medications. 16:51 Patient left the ED. ld1 Signatures: Dispatcher [employer] EDTX Arron Rich MD MD cha Martinez, Amelia as Shikha Reddy RN RN iw Leal, Jahala, RN RN jl7 Dibbern, Lauren, RN RN ld1 Corrections: (The following items were deleted from the chart) 11:55 11:54 PMHx: None; michelle martinez
[2021-02-16] MEDS ORDERED: DIAZEPAM 5 MG TABLET ONE (16:49)
[2021-02-16] MEDS ORDERED: dexAMETHasone 10 MG/ML VIAL ONE (16:49)
[2021-02-16] MEDS ORDERED: KETOROLAC 30 MG/ML INJ ONE (16:49)
[2021-02-16 16:55] VITALS: TEMP 97.6
[2021-02-16 16:59] VITALS: BP 148/80; O2SAT 100
--- NOTE | 2021-02-17 16:12 | EKG ---
Test Date: 2021-02-16 Test Time: 15:14:10 Pre Sales Technical Consultant: SARAI MEASUREMENT RESULTS: Intervals: Rate: 66 AR: 176 QRSD: 94 QT: 416 QTc: 436 Atkinson: P: 43 AR: 176 QRS: 44 T: 46 INTERPRETIVE STATEMENTS: Normal sinus rhythm Normal ECG No previous ECG available for comparison Electronically Signed On 02-17-21 16:08:44 CDT by Davide Santacruz
== END 2021-02-16 16:51 | disposition home or self-care (01) ==
LOC: ER 11:10
DX: M54.31 Sciatica, right side (principal); S39.092A Other injury of muscle, fascia and tendon of lower back, initial encounter; E11.65 Type 2 diabetes mellitus with hyperglycemia; E66.9 Obesity, unspecified; Z88.8 Allergy status to other drugs, medicaments and biological substances
CPT/HCPCS: 93005; 87088; 85025; 87086; 80048; 36415; 83735; 85610; 80076; 81003; 84484; 83690; 83880; 72131; 71045; 96375; 96374; 99284; J1100; J7030; 87077; 87186

== ENCOUNTER 2021-05-14 16:19 | Emergency (ER) | payer BC ==
--- NOTE | 2021-05-14 17:11 | RAD REPORT ---
EXAM DESCRIPTION: RAD - Ankle Right 3 View - 05/14/2021 5:05 pm CLINICAL HISTORY: Right ankle pain FINDINGS: No acute fracture or dislocation is seen. Osteoarthritis involves the ankle consisting joint space narrowing and osteophytes.
--- NOTE | 2021-05-14 17:22 | ER ---
Nurse's Notes [facility] Name: Ignacio Haddad Age: 55 yrs Sex: Male : 1965 Arrival Date: 05/14/2021 Time: 16:21 Bed DIS1 Private MD: Diagnosis: Sprain of unspecified ligament of right ankle;Primary osteoarthritis, right ankle and foot Presentation: 05/14 16:29 Chief complaint: Patient states: C/O ankle pain. Broke right ankle a year ago. Pt was ch5 injured foot Tuesday night. Coronavirus screen: Vaccine status: Patient reports being unvaccinated. Ebola Screen: Patient negative for fever greater than or equal to 101.5 degrees Fahrenheit, and additional compatible Ebola Virus Disease symptoms Patient denies exposure to infectious person. Patient denies travel to an Ebola-affected area in the 21 days before illness onset. Initial Sepsis Screen: Does the patient meet any 2 criteria? No. Patient's initial sepsis screen is negative. Does the patient have a suspected source of infection? No. Patient's initial sepsis screen is negative. Risk Assessment: Do you want to hurt yourself or someone else?. Onset of symptoms was May 09, 2021. 16:29 Method Of Arrival: Ambulatory [facility] 16:29 Acuity: DEWEY 3 5 Triage Assessment: 16:37 General: Appears uncomfortable, Behavior is calm, cooperative. 5 Historical: - Home Meds: 16:34 metformin 1,000 mg Oral tab 1 tab 2 times per day [Active]; Farxiga 10 mg oral tab ch5 [Active]; losartan 50 mg oral tab 2 times per day [Active]; tramadol 50 mg Oral tab every 4-6 hours [Active]; gabapentin 600 mg oral tab [Active]; Flexeril 5 mg Oral tab 1 tab 3 times per day [Active]; piroxicam 10 mg Oral cap 1 cap once daily [Active]; 16:37 trulicity [Active]; ch5 - Immunization history:: Adult Immunizations up to date, Client reports having NOT received the Covid vaccine. - Social history:: Smoking status: Patient denies any tobacco usage or history of. - Family history:: not pertinent. - Hospitalizations: : No recent hospitalization is reported. Screenin:34 Abuse screen: Denies threats or abuse. Denies injuries from another. Nutritional kg screening: No deficits noted. Tuberculosis screening: No symptoms or risk factors identified. Fall Risk No fall in past 12 months (0 pts). Secondary diagnosis (15 points) impaired mobility, No IV (0 pts). Ambulatory Aid- Crutches/Cane/Walker (15 pts). Gait- Weak (10 pts.). Mental Status- Oriented to own ability (0 pts). Total Katz Fall Scale indicates No Risk (0-24 pts). Assessment: 17:34 General: Appears in no apparent distress. Behavior is calm, cooperative, appropriate kg for age, quiet. Pain: Complains of pain in Right ankle. Neuro: No deficits noted. Cardiovascular: No deficits noted. Respiratory: No deficits noted. GI: No deficits noted. : No deficits noted. EENT: No deficits noted. Derm: No deficits noted. Musculoskeletal: Reports pain in Right ankle Pain is 8 out of 10 on a pain scale. Vital Signs: 16:29 BP 166 / 94; Pulse 88; Resp 18; Temp 97; Pulse Ox 100% on R/A; Weight 136.98 kg; Height ch5 5 ft. 10 in. (177.80 cm); Pain 6/10; 17:35 BP 144 / 70; Pulse 76; Resp 20; Pulse Ox 100% on R/A; kg 16:29 Body Mass Index 43.33 (136.98 kg, 177.80 cm) 5 ED Course: 16:21 Patient arrived in ED. rg4 16:29 Jenaro Andrade RN is Primary Nurse. 5 16:34 Triage completed. 5 16:48 Vladislav De Los Santos MD is Attending Physician. rn 17:05 XRAY Ankle RIGHT 3 view In Process Unspecified. EDMS 17:34 Patient has correct armband on for positive identification. kg 17:35 Arm band placed on. kg 17:35 No provider procedures requiring assistance completed. Patient did not have IV access kg during this emergency room visit. Administered Medications: No medications were administered Outcome: 17:21 Discharge ordered by . rn 17:35 Discharged to home ambulatory. kg 17:35 Condition: good 17:35 Discharge instructions given to patient, Instructed on discharge instructions, follow up and referral plans. Demonstrated understanding of instructions, follow-up care. 17:36 Patient left the ED. kg Signatures: Dispatcher [employer] EDMS Vladislav De Los Santos MD MD rn Sam, Desirae rg4 Muna Brand RN RN Jenaro Andrade RN RN ch5 Corrections: (The following items were deleted from the chart) 16:38 16:37 PMHx: diabetes mellitus; ch5 ch5
--- NOTE | 2021-05-14 17:22 | EDPHYS ---
Physician Documentation [facility] Name: Ignacio Haddad Age: 55 yrs Sex: Male : 1965 Arrival Date: 05/14/2021 Time: 16:21 Bed DIS1 Private MD: ED Physician Vladislav De Los Santos HPI: 05/14 17:18 This 55 yrs old Male presents to ER via Ambulatory with complaints of Ankle rn Injury. 17:18 The patient presents with an injury, pain. The complaints affect the right ankle. rn 17:18 Onset: The symptoms/episode began/occurred 4 day(s) ago. Context: The problem was rn sustained at a store, resulted from a mis-step by the patient, The mechanism of injury is unknown. The patient can partially bear weight on the affected extremity. the patient is able to ambulate. Modifying factors: The symptoms are alleviated by elevation of extremity, sitting, the symptoms are aggravated by weight bearing, movement. Severity of symptoms: At their worst the symptoms were mild, in the emergency department the symptoms are unchanged. The patient has experienced a previous episode. Patient reports getting into a cart at the store, slipped when getting in, ankle rolled and hit basket of cart. Reports broke that same ankle 1 year ago and has been having pain with ambulation and movement since Tuesday so came in for evaluation.. Historical: - Home Meds: 16:34 metformin 1,000 mg Oral tab 1 tab 2 times per day [Active]; Farxiga 10 mg oral tab ch5 [Active]; losartan 50 mg oral tab 2 times per day [Active]; tramadol 50 mg Oral tab every 4-6 hours [Active]; gabapentin 600 mg oral tab [Active]; Flexeril 5 mg Oral tab 1 tab 3 times per day [Active]; piroxicam 10 mg Oral cap 1 cap once daily [Active]; 16:37 trulicity [Active]; ch5 - Immunization history:: Adult Immunizations up to date, Client reports having NOT received the Covid vaccine. - Social history:: Smoking status: Patient denies any tobacco usage or history of. - Family history:: not pertinent. - Hospitalizations: : No recent hospitalization is reported. ROS: 17:18 MS/Extremity: Positive for injury to right ankle Skin: Negative for injury, rash, and rn discoloration. Exam: 17:18 Constitutional: This is a well developed, well nourished patient who is awake, alert, rn and in no acute distress. Skin: No open wounds. MS/ Extremity: Pulses equal, no cyanosis. Neurovascular intact. Mild tenderness over lateral malleolus in front of ankle. No tenderness of toes or foot proper. Vital Signs: 16:29 BP 166 / 94; Pulse 88; Resp 18; Temp 97; Pulse Ox 100% on R/A; Weight 136.98 kg; Height ch5 5 ft. 10 in. (177.80 cm); Pain 6/10; 17:35 BP 144 / 70; Pulse 76; Resp 20; Pulse Ox 100% on R/A; kg 16:29 Body Mass Index 43.33 (136.98 kg, 177.80 cm) ch5 MDM: 17:15 Patient medically screened. rn 17:18 Differential diagnosis: fracture, sprain, arthritis. Data reviewed: vital signs, nurses rn notes, radiologic studies, plain films, and as a result, I will discharge patient. Test interpretation: by ED physician or midlevel provider: plain radiologic studies, X-ray right ankle negative for acute fracture or dislocation. Counseling: I had a detailed discussion with the patient and/or guardian regarding: the historical points, exam findings, and any diagnostic results supporting the discharge/admit diagnosis, radiology results, the need for outpatient follow up, to return to the emergency department if symptoms worsen or persist or if there are any questions or concerns that arise at home. Response to treatment: There is no appreciated change of the patient's symptoms at this time, and as a result, I will discharge patient. Special discussion: I discussed with the patient/guardian in detail that at this point there is no indication for admission to the hospital. It is understood, however, that if the symptoms persist or worsen the patient needs to return immediately for re-evaluation. 05/14 16:48 Order name: XRAY Ankle RIGHT 3 view; Complete Time: 17:15 rn Administered Medications: No medications were administered Disposition Summary: 05/14/21 17:21 Discharge Ordered Location: Home rn Problem: new rn Symptoms: have improved rn Condition: Stable rn Diagnosis - Sprain of unspecified ligament of right ankle rn - Primary osteoarthritis, right ankle and foot rn Followup: rn - With: Private Physician - When: As needed - Reason: Recheck today's complaints, Re-evaluation by your physician Discharge Instructions: - Discharge Summary Sheet rn - Ankle Sprain rn - Arthritis rn Forms: - Medication Reconciliation Form rn - Thank You Letter rn - 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
[2021-05-14 17:41] VITALS: TEMP 97; O2SAT 100
[2021-05-14 17:43] VITALS: BP 144/70
== END 2021-05-14 17:36 | disposition home or self-care (01) ==
LOC: ER 16:19
DX: S93.401A Sprain of unspecified ligament of right ankle, initial encounter (principal); M19.071 Primary osteoarthritis, right ankle and foot; X58.XXXA Exposure to other specified factors, initial encounter; Y93.01 Activity, walking, marching and hiking; Y92.512 Supermarket, store or market as the place of occurrence of the external cause
CPT/HCPCS: 99283